=== PATIENT | male | born 1965 | race Caucasian/White ===

== ENCOUNTER 2025-07-10 11:59 | Day surgery (SDC) | payer OTHER ==
[~2025-07-10] VITALS: Ht 175.3 cm; Wt 87.9 kg
[2025-07-10] VITALS (12 sets, daily range): BP systolic 132–168; BP diastolic 92–122
[~2025-07-10 11:59] MED LIST: Crestor40 MG PO; INSULANI SC; METF500 PO
--- NOTE | 2025-07-10 12:33 | NUR ---
Ambulatory in Day Surgery History, Chart, Medications and Allergies reviewed before start of procedure. Pre-Op teaching done. Pt verbalizes understanding. Patient States Post-Procedure ride home has been arranged.
--- NOTE | 2025-07-10 13:03 | NUR ---
07/10/25 1303 Elina Stein CONFIRMED AND REVIEWED H&P, MEDCICATIONS, ALLERGIES, MEDICAL HISTORY, RESPIRATORY HISTORY, VITAL SIGNS, 3-LEAD EKG, CONSENTS, AND PHYSICIAN ORDERS. PATIENT CONFIRMS NPO STATUS AND AGREES WITH SCHEDULED PROCEDURE. MONITOR INTACT WITH CONTINUOUS PULSE OXIMETRY, CAPNOGRAPHY, 3-LEAD EKG, INTERMITTENT BP. SUPPLEMENTAL O2 TO BE TITRATED THROUGHOUT PROCEDURE TO MAINTAIN O2 SATURATION ABOVE 90%. PATIENT DETERMINED TO BE ASA APPROPRIATE FOR PROPOFOL SEDATION PRIOR TO START OF PROCEDURE BY DR. DAVIS. MALLAMPATI CLASS 2 AIRWAY: COMPLETE .VISUALIZATION OF THE [facility]. LOANER COLONOSCOPE FROM [facility] #[id number]
--- NOTE | 2025-07-10 13:51 | NUR ---
Patient States Post-Procedure ride home has been arranged. Discharged via wheelchair to private car for ride home. Discharge instructions reviewed with patient. Patient verbalizes understanding. Copy given to patient to take home.
== END 2025-07-10 23:00 | disposition home or self-care (01) ==
LOC: ORSCMMR 11:59 → ORD 12:45 → ORSCMMR 23:00
PROVIDERS: Internal Medicine Gastroenterology
PROC: 0DJD8ZZ Inspection of Lower Intestinal Tract, Via Natural or Artificial Opening Endoscopic (ICD-10-PCS; principal; 2025-07-10 12:45)
DX: Z12.11 Encounter for screening for malignant neoplasm of colon (principal); E11.9 Type 2 diabetes mellitus without complications; I10 Essential (primary) hypertension; E78.00 Pure hypercholesterolemia, unspecified; Z79.84 Long term (current) use of oral hypoglycemic drugs; Z79.4 Long term (current) use of insulin; Z79.899 Other long term (current) drug therapy
CPT/HCPCS: 82947; J2704; J7120